=== PATIENT | male | born 1935 | race Caucasian/White ===

== ENCOUNTER 2017-09-08 13:39 | Outpatient (CLI) | payer MEDICARE, BC | END 2017-09-08 13:40 | disposition home or self-care (01) | LOC: ULT 13:39 | PROVIDERS: ATTEND Internal Medicine | DX: I51.7 Cardiomegaly (principal); I08.3 Combined rheumatic disorders of mitral, aortic and tricuspid valves; I37.1 Nonrheumatic pulmonary valve insufficiency; I25.10 Atherosclerotic heart disease of native coronary artery without angina pectoris | CPT/HCPCS: 93306 ==

== ENCOUNTER 2025-05-28 07:52 | Day surgery (SDC) | payer MEDICARE, BC ==
[2025-05-27 11:36] VITALS: BMI 21.9
[~2025-05-28 07:52] MED LIST: EPINEPHrine 0.3 MG in Ophthalmic Irrigation Solution 500 ML IRR SCH
[2025-05-28] MEDS ORDERED: Cyclopentolate 1% Opth Drop 2 ML BOT ONE (08:33)
[2025-05-28] MEDS ORDERED: Lidocaine 1% PF 5 ML VIAL ONE ×2 (09:19→09:49)
[2025-05-28] MEDS ORDERED: PROPOFOL 200 MG/20 ML VIAL ONE (09:49)
[2025-05-28] MEDS ORDERED: CEFAZOLIN 1 GM VIAL ONE (09:49)
[2025-05-28] MEDS ORDERED: Maxitrol 0.1% Opth Oint 3.5 GM TUBE ONE (09:49)
[2025-05-28] MEDS ORDERED: Lidocaine 4% PF 5 ML AMP ONE (09:49)
== END 2025-05-28 11:06 | disposition home or self-care (01) ==
LOC: SDC 07:52
PROVIDERS: ATTEND Ophthalmology Retina Specialist
PROC: 08B53ZZ Excision of Left Vitreous, Percutaneous Approach (ICD-10-PCS; principal; 2025-05-28)
DX: H43.392 Other vitreous opacities, left eye (principal)
CPT/HCPCS: 67036; J0166; J3010; J0690; J2704; J3301; J3490